=== PATIENT | female | born 1960 | race African-American/Black ===

== ENCOUNTER 2019-11-14 00:28 | Inpatient (IN) | payer MEDICARE ==
[~2019-11-14] VITALS: Ht 170.2 cm; Wt 90.5 kg
[2019-11-14] VITALS (32 sets, daily range): BP systolic 107–180; BP diastolic 73–111; BMI 33.0; BMI 32.9
--- NOTE | ~2019-11-14 | EC ---
PATIENT:HEMALATHA PARK DATE OF SERVICE: 11/14/19 SEX: F MEDICAL RECORD: [id number] DATE OF : 58 LOCATION[facility] AGE OF PATIENT: 59 ADMISSION DATE: 11/14/19 REFERRING PHYSICIAN: INTERPRETING PHYSICIAN: KARINE CARLOS MD ECHOCARDIOGRAM REPORT ECHO CHARGES 4 ECHO COMPLETE Date: 11/14/19 CLINICAL DIAGNOSIS: CHF/ELEVATED PRO-BNP/ BRADYCARDIA ECHOCARDIOGRAPHIC MEASUREMENTS (adult normal given) AC root (d.<3.7cm) 3.2 cm LV Septum d (<1.2 cm> 1.3 cm Valve Excursion 1.6 cm LV Septum (systole) 1.5 cm Left Atria (s.<4.0cm> 2.8 cm LVPW d(<1.2cm) 1.1 cm RV (d.<2.3cm) 2.7 cm LVPW (sytole) 1.6 cm LV diastole(<5.6CM) 4.4 cm MV E-F(>70mm/sec) cm LV systole 3.4 cm LVOT Diameter 1.7 cm MV exc.(>10mm) cm Est.ejection fraction (50-75%) % DOPPLER: LVIT cm/sec A 89.0 cm/sec E 56.0 cm/sec LA cm/sec RVSP mmHg LVOT 74.0 cm/sec AOP1/2T m/s Asc. Ao 135 cm/sec RVOT 65.0 cm/sec RA cm/sec PA 73.0 cm/sec AV Gradient Peak 7.3 mmHg AV Mean 3.8 mmHg AV Area 1.7 cm MV Gradient Peak 3.8 mmHg MV Mean 1.5 mmHg MV Area cm COMMENTS: Insurance Loss Assessor: Marvin VILLANUEVAOE Merchandise Appraiser: 1 Dr. Carlos TAPE# PACS Pericardial Effusion N DATE OF SERVICE: 11/14/2019 FINDINGS: 1. Left ventricular chamber size is mildly dilated. Left ventricular function is markedly reduced, overall ejection fraction 25%. 2. Left atrium, right atrium, right ventricle chamber size is within normal limits. 3. Valvular structures have normal structure and motion. 4. Doppler interrogation reveals no significant valvular insufficiency or stenosis. ECHOCARDIOGRAM REPORT [id number] HEMALATHA PARK 5. No evidence of pericardial effusion or left ventricular thrombus. TRANSINT:[id number] Voice Confirmation ID: [id number] DOCUMENT ID: [id number] KARINE CARLOS MD CC: [id number] DICTATION DATE: 11/15/19 1311 SPLICER OPERATOR: 11/15/19 1723 ADM IN [place] [id number] [place] [id number]
[2019-11-14] MEDS ORDERED: PRILOSEC PO (00:34)
[2019-11-14] MEDS ORDERED: ZOLOFT50 MG PO (00:35)
[2019-11-14] MEDS ORDERED: BUSPAR10 MG PO (00:36)
[2019-11-14] MEDS ORDERED: REGULAR INSULIN (00:36)
[2019-11-14] MEDS ORDERED: NEURONTIN 400400 MG PO (00:36)
[2019-11-14] MEDS ORDERED: BISACODYL5 MG PO (00:37)
[2019-11-14] MEDS ORDERED: GLUCAGON IM (00:37)
--- NOTE | 2019-11-14 04:11 | NUR ---
AWAITING RESPIRATORY AND RADIOLOGY FOR PATIENT TO GO AROUND FOR CT.
--- NOTE | 2019-11-14 04:49 | NUR ---
PATIENT IS HAVING PAUSES IN CARDIAC RHYTHM BRADYING DOWN TO 40'S BRIEFLY WILL CONTINUE TO WATCH PATIENT BEFORE TAKING AROUND TO CT.
[2019-11-14 05:44] LABS: BASOPHILS 0.2 % (0-2); EOSINOPHILS 0 % (0-7); HEMATOCRIT 56.4 % (36.0-48.0); HEMOGLOBIN 17.3 g/dL (12-16); IMMATURE GRANULOCYTES 0.5 % (0-5); LYMPHOCYTES 9.8 % (15-50); MCH 28.5 pg (26.0-34.0); MCHC 30.7 g/dL (31.0-37.0); MCV 93.1 fL (80.0-100.0); MEAN PLATELET VOLUME 10.9 fL (7.4-10.4); MONOCYTES 4.3 % (2-11); NEUTROPHILS 85.2 % (40-80); PLATELET COUNT 146 10x3/uL (130-400); RBC 6.06 10x6/uL (4.00-5.40); RDW 14.6 % (11.5-14.5); WBC 10.4 10x3/uL (4.8-10.8)
--- NOTE | 2019-11-14 07:00 | NUR ---
REPORT RECIEVED FROM THE OFF GOING RN. SEE ASSESSMENT IN THE PTS FLOW SHEET. PT SEDATED AND ON THE VENTILATOR. NGT NOTED TO LEFT NARE TO LIS. NO RESIDUAL NOTED BUT ASCULTATED AND IT IS PATENT. FC NOTED WITH DARK YELLOW URINE NOTED. VSS AT THIS TIME. CALL LIGHT IN REACH. WILL CONT POC.
[2019-11-14 07:39] LABS: CKMB 15.5 U/L (0.0-3.6); CREATINE KINASE 251 UL (21-215); MAGNESIUM - SERUM 1.9 mg/dL (1.8-2.4); PHOSPHOROUS 3.5 mg/dL (2.5-4.9)
[2019-11-14 07:41] LABS: TROPONIN-I 4.758 ng/mL (0.000-0.060)
[2019-11-14 07:42] LABS: ALBUMIN 2.6 g/dL (3.4-5.0); ANION GAP 12.2 mmol/L (8-16); BILIRUBIN - TOTAL 0.37 mg/dL (0.2-1.3); CALCIUM 8.7 mg/dL (8.5-10.1); CARBON DIOXIDE 30.3 mmol/L (21.0-32.0); CREATININE - SERUM 1.1 mg/dL (0.6-1.3); POTASSIUM - SERUM 4.5 mmol/L (3.5-5.1); PROTEIN - SERUM 7.1 g/dL (6.4-8.2)
--- NOTE | 2019-11-14 08:07 | NUR ---
SPOKE WITH DR CLEMENTE ABOUT ELEVATED CARDIAC EMZYMES. EXPLAINED THAT THE PT DID NOT GET A HEAD CT BECAUSE OF THE PTS BRADYCARDIA. CANCLE HEAD CT. CONSULT CARDIOLOGY. CYCLE CARDIAC EMZYMES.
--- NOTE | 2019-11-14 08:12 | NUR ---
DR CARTER PAGED ABOUT CONSULT.
--- NOTE | 2019-11-14 08:23 | NUR ---
DR CARTER CALLED BACK AND MADE AWARE OF CONSULT. HE STATED MICHAEL ZAVALA WILL SEE THE PT.
--- NOTE | 2019-11-14 09:46 | NUR ---
MICHAEL WOLF AT THE PTS BEDSIDE.
--- NOTE | 2019-11-14 11:00 | NUR ---
REASSESSMENT COMPLETED. SEE FLOW SHEET. WILL CONT POC.
--- NOTE | 2019-11-14 13:00 | NUR ---
PT REPOSITIONED. VSS. WILL CONT POC.
[2019-11-14 13:35] LABS: CKMB 11.2 U/L (0.0-3.6); CREATINE KINASE 216 UL (21-215)
[2019-11-14 13:38] LABS: TROPONIN-I 4.695 ng/mL (0.000-0.060)
--- NOTE | 2019-11-14 14:00 | NUR ---
PT RECIEVED A FULL CHD BATH AND LINEN CHANGE. PT TOLERATED WELL.
--- NOTE | 2019-11-14 15:00 | NUR ---
REASSESSMENET COMPLETED SEE FLOW SHEET. WILL CONT POC.
--- NOTE | 2019-11-14 16:00 | MORECARE ---
CASE MANAGEMENT DISCHARGE SUMMARY PATIENT: HEMALATHA PARK UNIT: [id number] ADM DATE: 11/14/19 AGE: 59 : 58 SEX: F ROOM/BED: D.2312 AUTHOR: HARISH BURROUGHS PHYSICIAN: REFERRING PHYSICIAN: JOSÉ MIGUEL CLEMENTE MD DATE OF SERVICE: 11/14/19 Discharge Plan Patient Name: HEMALATHA PARK [facility] [facility] 1960 Planned Disposition: Nursing Facility [facility] Cert Anticipated Discharge Date: Discharge Date: Expected LOS: Initial Reviewer: [email or web address] Initial Review Date: 11/14/2019 Generated: 11/14/19 4:59 pm DCPIA - Discharge Planning Initial Assessment Updated by [email or web address]: Minerva Linares on 11/14/19 3:54 pm * Is the patient Alert and Oriented? Yes * How many steps to enter\exit or inside your home? * PCP FARIHA MENDEZ [phone] * [facility]acy [facility] * Preadmission Environment [facility] Laboratory Technician [facility] * Facility Name [facility] * List name and contact numbers for known caregivers / representatives who currently or will assist patient after discharge: KORY MARION [facility] [phone] * Verbal permission to speak to the caregivers and representatives has been obtained from the patient. N/A * Community resources currently utilized None * Additional services required to return to the preadmission environment? No * Can the patient safely return to the preadmission environment? Yes * Has this patient been hospitalized within the prior 30 days at any hospital? No Patient Name: HEMALATHA PARK Page [id number] at 1600 All edits/amendments must be made on the electronic document DICTATION DATE: 11/14/191558 WOMEN NURSE: DILEEP 11/14/191558 RPT#: [id number] DC DATE: STATUS: ADM IN [facility] [address] [place] [address] END OF REPORT
--- NOTE | 2019-11-14 16:11 | MORECARE ---
CASE MANAGEMENT DISCHARGE SUMMARY PATIENT: HEMALATHA PARK UNIT: [id number] ADM DATE: 11/14/19 AGE: 59 : 58 SEX: F ROOM/BED: D.2312 AUTHOR: MANJEET,DOC PHYSICIAN: REFERRING PHYSICIAN: JOSÉ MIGUEL CLEMENTE MD DATE OF SERVICE: 11/14/19 Discharge Plan Patient Name: HEMALATHA PARK Facility: [facility]:[place] : 1960 Planned Disposition: Nursing Facility [facility] Cert Anticipated Discharge Date: Discharge Date: Expected LOS: Initial Reviewer: [email or web address] Initial Review Date: 11/14/2019 Generated: 11/14/19 5:10 pm Comments DCP- Discharge Planning Updated by [email or web address]: Minerva Linares on 11/14/19 3:[address] Patient Name: HEMALATHA PARK Admission Status: ER Accout number: [id number] Admission Date: 11-14-2019 : 1960 Admission Diagnosis: Attending: JSOÉ MIGUEL CLEMENTE Current LOS: 1 Anticipated DC Date: Planned Disposition: Nursing Facility [facility] Cert Primary Insurance: MEDICARE A & B Discharge Planning Comments: CM spoke with [facility]. [phone]. Patient has been at this facility since 10/31/19. She had transferred from a senior living in [place]. Patient is in a Medicaid bed in the facility. [facility] plans to accept patient back once she is discharged. CM couldn't speak with patient d/t her being on vent sedated. No family available at this time. CM will continue to follow and assist as needed with discharge planning / needs. Fork Assembler: Minerva Linares DCPIA - Discharge Planning Initial Assessment Updated by [email or web address]: Minerva Linares on 11/14/19 3:54 pm * Is the patient Alert and Oriented? Yes * How many steps to enter\exit or inside your home? * PCP FARIHA MENDEZ [phone] * Pharmacy [facility] [place] * Preadmission Environment Fpc [facility] * Facility Name [facility] * List name and contact numbers for known caregivers / representatives who currently or will assist patient after discharge: KORY SANCHEZ- [phone] * Verbal permission to speak to the caregivers and representatives has been obtained from the patient. N/A * Community resources currently utilized None * Additional services required to return to the preadmission environment? No * Can the patient safely return to the preadmission environment? Yes * Has this patient been hospitalized within the prior 30 days at any hospital? No Last DP export: 11/14/19 3:00 Patient Name: HEMALATHA PARK Page [phone] at 1611 All edits/amendments must be made on the electronic document DICTATION DATE: 11/14/191609 STOCK RANCH SUPERVISOR: DILEEP 11/14/191609 RPT#: [id number] DC DATE: STATUS: ADM IN [facility] [address] [place] [address] END OF REPORT
--- NOTE | 2019-11-14 18:30 | NUR ---
SPOKE WITH GITA WOODWARD. SHE STATED THAT SHE WILL BE ABLE TO HELP WITH THE VENT AND HEAD CT AROUND 9PM. CT CALLED AND OFF GOING RN NOTIFIED.
[2019-11-14 18:54] LABS: INR 1.19 (0.85-1.17); PROTIME 14.5 SECONDS (11.6-15.0)
[2019-11-14 19:24] LABS: CKMB 7.4 U/L (0.0-3.6); CREATINE KINASE 188 UL (21-215); PRO BNP 2959 pg/mL (0-125)
[2019-11-14 19:27] LABS: TROPONIN-I 4.461 ng/mL (0.000-0.060)
--- NOTE | 2019-11-14 19:30 | NUR ---
PT SEDATED, ETT PATENT TO VENT, NGT TO LIWS, LEFT AND RIGHT AC PIV'S INTACT WITH FLUIDS INFUSING, DOWNING PATENT TO BSD, BILAT SWR IN USE, SCD'S TO BILAT LOWER LEGS, VITALS STABLE, WILL CONT TO MONITOR
--- NOTE | 2019-11-14 21:15 | NUR ---
NGT SLUGGISH, NO OUTPUT NOTED, D/C'D NGT, PLACED OGT TO LIWS, PT TOLERATED WELL, IMMEDIATE GREEN OUTPUT NOTED
--- NOTE | 2019-11-14 22:50 | NUR ---
PT TAKEN TO CT VIA BED WITH RT PRESENT, ETT PATENT TO AMBU BAG, PT REMAINS SEDATED
[2019-11-15] VITALS (26 sets, daily range): BP systolic 87–161; BP diastolic 59–94
--- NOTE | 2019-11-15 01:00 | NUR ---
PT REMAINS SEDATED, OGT TO ESSIE,ETT PATENT TO VENT, NO DISTRESS NOTED
--- NOTE | 2019-11-15 03:00 | NUR ---
PT BATHED PER STAFF, SUCTIONED, COPIUOS AMOUNTS CLEAR THICK DRAINAGE COMING FROM MOUTH AND NOSE, VITALS STABLE
[2019-11-15 04:00] LABS: BASOPHILS 0.1 % (0-2); EOSINOPHILS 0 % (0-7); HEMOGLOBIN 15.1 g/dL (12-16); IMMATURE GRANULOCYTES 0.3 % (0-5); LYMPHOCYTES 6.6 % (15-50); MCHC 32.1 g/dL (31.0-37.0); MEAN PLATELET VOLUME 10.6 fL (7.4-10.4); MONOCYTES 4.3 % (2-11); NEUTROPHILS 88.7 % (40-80); PLATELET COUNT 159 10x3/uL (130-400); RBC 5.21 10x6/uL (4.00-5.40); RDW 14.3 % (11.5-14.5)
[2019-11-15 04:05] LABS: MCV 90.2 fL (80.0-100.0); WBC 14.5 10x3/uL (4.8-10.8)
[2019-11-15 04:26] LABS: ALBUMIN 2.2 g/dL (3.4-5.0); ANION GAP 8.6 mmol/L (8-16); BILIRUBIN - TOTAL 0.24 mg/dL (0.2-1.3); CALCIUM 8.7 mg/dL (8.5-10.1); CARBON DIOXIDE 32.4 mmol/L (21.0-32.0); CREATININE - SERUM 0.9 mg/dL (0.6-1.3); MAGNESIUM - SERUM 1.9 mg/dL (1.8-2.4); PHOSPHOROUS 3.1 mg/dL (2.5-4.9); VALPROIC ACID (DEPAKOTE) 24.9 ug/mL (50.0-100.0)
[2019-11-15 04:38] LABS: INR 1.07 (0.85-1.17); PROTIME 13.4 SECONDS (11.6-15.0)
--- NOTE | 2019-11-15 05:15 | NUR ---
NO CHANGES NOTED IN PT CONDITION, REMAINS SEDATED, VITALS STABLE
--- NOTE | 2019-11-15 07:15 | NUR ---
REPORT RECEIVED. ASSESSMENT COMPLETE PRE FLOW SHEET. VSS REFER FOR FINDINGS. IWLL CONTINUE TO MONITOR
--- NOTE | 2019-11-15 08:25 | NUR ---
Nutrition follow-up: Pt intubated, sedated OGT -> LIWS with large amount of drainage Labs reviewed Wt: 218# Recommend starting Pulmocare @ 25 ml/hr with gradual increase to goal rate of 50 ml/hr; 100 ml H2O flush q [address] following.
--- NOTE | 2019-11-15 09:00 | NUR ---
ORAL NEDOTRACH CARE ADM. REPOSITIONED FOR COMFORT WILL CONTNIUE TO MONITOR
--- NOTE | 2019-11-15 11:15 | NUR ---
REASSESSMENT COMLPETE PER FLOW SHEET. VSS. NO NEW CHANGES WILL CONTINUE TO MONITOR
--- NOTE | 2019-11-15 13:15 | NUR ---
DR SANDS AT BEDSIDE GIVEN UDPATE NEW ORDERS RECEIVED
--- NOTE | 2019-11-15 15:15 | NUR ---
REASSESSMENT COMPLETE PER FLOW SHEET. VSS. NO NEW CHANGES IWLL CONTINUE TO MONITOR
--- NOTE | 2019-11-15 19:30 | NUR ---
PT SEDATED, ETT PATENT TO VENT, BILAT CRACKLES NOTED, OGT IN PLACE WITH PULMOCARE @ 20 CC/HR, LEFT AND RIGHT AC PIV'S INTACT WITH NS @ KVO AND FENTANYL MANAGER OF MAINTENANCE, GENERALIZED EDEMA NOTED, DOWNING PATENT TO BSD WITH DARK JAVED URINE, SCD'S TO BILAT LOWER LEGS, VITALS STABLE
--- NOTE | 2019-11-15 21:15 | NUR ---
PT RESTING QUIETLY, BRADYCARDIC, NO DISTRESS NOTED, WILL CONT TO MONITOR
--- NOTE | 2019-11-15 23:25 | NUR ---
PT REMAINS BRADRCARDIC, HR INCREASES WITH STIMULATION, FENTANYL GTT DECREASED TO 200MCG/HR
[2019-11-16] VITALS (25 sets, daily range): BP systolic 85–156; BP diastolic 45–109; Ht 170.2 cm; Wt 90.5 kg
--- NOTE | 2019-11-16 00:44 | NUR ---
PT REMAINS BRADYCARDIC, AROUSES BRIEFLY TO STIMULI, FENTANYL GTT DECREASED TO 150 MCG/HR, WILL CONT TO MONITOR
--- NOTE | 2019-11-16 03:00 | NUR ---
PT TRING TO GET UP, IV FOUND PULLED OUT, RESITED TO RIGHT FOREARM WITH 20G IV CATH, PLACED 20G IV CATH TO LEFT FOREARM AND SL, PT FOLLOWS COMMANDS, VITALS STABLE
[2019-11-16 04:29] LABS: BASOPHILS 0.1 % (0-2); EOSINOPHILS 0 % (0-7); HEMATOCRIT 48.8 % (36.0-48.0); HEMOGLOBIN 15.6 g/dL (12-16); IMMATURE GRANULOCYTES 0.5 % (0-5); LYMPHOCYTES 5.3 % (15-50); MCH 29.2 pg (26.0-34.0); MCV 91.4 fL (80.0-100.0); MEAN PLATELET VOLUME 10.3 fL (7.4-10.4); MONOCYTES 3.6 % (2-11); NEUTROPHILS 90.5 % (40-80); PLATELET COUNT 168 10x3/uL (130-400); RBC 5.34 10x6/uL (4.00-5.40); RDW 14.3 % (11.5-14.5); WBC 17.8 10x3/uL (4.8-10.8)
[2019-11-16 04:42] LABS: ALBUMIN 2.5 g/dL (3.4-5.0); BILIRUBIN - TOTAL 0.41 mg/dL (0.2-1.3); CALCIUM 8.7 mg/dL (8.5-10.1); CARBON DIOXIDE 32.5 mmol/L (21.0-32.0); MAGNESIUM - SERUM 2.2 mg/dL (1.8-2.4); PROTEIN - SERUM 6.6 g/dL (6.4-8.2)
[2019-11-16 04:43] LABS: ANION GAP 9.5 mmol/L (8-16); PHOSPHOROUS 4.8 mg/dL (2.5-4.9)
--- NOTE | 2019-11-16 05:34 | NUR ---
PT SEDATED, OPENS EYES TO STIMULI, FOLLOWS COMMANDS POORLY, VITALS STABLE
--- NOTE | 2019-11-16 07:00 | NUR ---
OPENS EYES TO NAMES, SQUEEZES RIGHT HAND ON REQUEST. RETURNS TO SLEEP WHEN NOT SPOKEN TOO. SKIN WARM AND DRY. IV RIGHT FOREARM INFUSING WITH NS AND KVO. LEFT FOREARM IV SALINE LOCK NO REDNESS OR SWELLING. ETT SECURE TO VENT BILATERAL LUNG SOUNDS EQUAL SKIN WARM AND DRY..CATH PATENT DRAINING JAVED URINE. MONITOR SB WITH OCC PVC'S. HEAD OF BED ELEVATED 30 DEGREES. SUCTIONED SMALL AMOUNT PER ETT. ORAL CARE DONE
--- NOTE | 2019-11-16 09:00 | NUR ---
HIBCLDENS BATH GIVEN WITH COMPLETE LINEN CHANGE PATIENT TOLERATED WELL. VERSED GIVEN PRIOR TO BATH. NO SKIN BREAKDOWN NOTED.
--- NOTE | 2019-11-16 11:00 | NUR ---
DR. PRINCE HERE. SPUTUM CULTURE RESULTS GIVEN TO HIM.
--- NOTE | 2019-11-16 13:00 | NUR ---
REPOSITIONED PULLED UP IN BED. TOLERATED WELL OPENS EYES TO NAME. NO DISTRESS. RESTING COMFORTABLY
--- NOTE | 2019-11-16 17:00 | NUR ---
RESTING COMFORTABLY ON VENT. NO DISTRESS. OPENS EYES WHEN SPOKEN TOO. GOOD RESPONSE TO BUMEX.
--- NOTE | 2019-11-16 17:49 | NUR ---
called to check on patient. name kamari roberts [phone]. states he is not sure who is over patient right now. states tish collado is her sister in law. discuss password, need to talk with tish to establish.
--- NOTE | 2019-11-16 19:00 | NUR ---
REPORT RECEIVED INITIAL ASSESSMENT COMPLETE. OPENS EYES TO VERBAL STIMULI FOLLOWS COMMANDS CM READING SB IN 40-50'S. TUBE FEEDING VIA OGT TOLERATING WELL. ORALLY INTUBATED SEE RESP NOTES. CPOC WILL CONTINUE TO MONITOR
[2019-11-17] VITALS (24 sets, daily range): BP systolic 115–162; BP diastolic 71–95
--- NOTE | 2019-11-17 00:09 | NUR ---
PT ANXIOUS BLOOD PRESSURE UP FIDGETING MEDICATED WITH VERSED PER PRN EMAR ORDER
--- NOTE | 2019-11-17 02:31 | NUR ---
PT BITING ETT RESTLESS MEDICATED WITH VERSED PRN MED SEE EMAR
--- NOTE | 2019-11-17 03:00 | NUR ---
REASSESSMENT COMPLETE NO CHANGES
[2019-11-17 03:44] LABS: BASOPHILS 0.1 % (0-2); EOSINOPHILS 0 % (0-7); HEMATOCRIT 48.8 % (36.0-48.0); HEMOGLOBIN 15.8 g/dL (12-16); IMMATURE GRANULOCYTES 0.7 % (0-5); LYMPHOCYTES 5.9 % (15-50); MCHC 32.4 g/dL (31.0-37.0); MCV 89.7 fL (80.0-100.0); MEAN PLATELET VOLUME 10.7 fL (7.4-10.4); MONOCYTES 4.2 % (2-11); NEUTROPHILS 89.1 % (40-80); PLATELET COUNT 166 10x3/uL (130-400); RBC 5.44 10x6/uL (4.00-5.40); RDW 13.9 % (11.5-14.5); WBC 16.7 10x3/uL (4.8-10.8)
[2019-11-17 04:09] LABS: ALBUMIN 2.3 g/dL (3.4-5.0); BILIRUBIN - TOTAL 0.28 mg/dL (0.2-1.3); CALCIUM 8.7 mg/dL (8.5-10.1); CARBON DIOXIDE 34.3 mmol/L (21.0-32.0); MAGNESIUM - SERUM 2.2 mg/dL (1.8-2.4); PROTEIN - SERUM 6.3 g/dL (6.4-8.2)
[2019-11-17 04:12] LABS: ANION GAP 7.9 mmol/L (8-16); PHOSPHOROUS 2.9 mg/dL (2.5-4.9); POTASSIUM - SERUM 4.2 mmol/L (3.5-5.1)
--- NOTE | 2019-11-17 07:00 | NUR ---
AWAKE COUGHING GAGGING AGAINST ETT TUBE. VERSE AND FENTANYL INCREASED TO 150 MCG. SUCTIONED ORALLY, NASAL DRAINAGE, SUCTIONED. REPOSITIONED. BILATERAL LUNG SOUNDS EQUAL. OG TUBE INFSING WITH PULMOCARE AT 45 ML HOUR. DOWNING CATH PATENT DRAINING CLEAR JAVED. MONITOR SB. OCC PVC AND PAC'S NOTED. SCD ON LOWER LEGS. HEAD OF BED ELEVATED AT 30 DEGREES. ETT SECURE TO VENT.
--- NOTE | 2019-11-17 09:00 | NUR ---
10CC RESIDULA FROM OG. PLACEMENT CHECKED WITH AIR BOLUS IN TUBE, AUDIBLE IN ABD. PATIENT OPENS EYES AND FOLLOWS NURSE IN ROOM. DOES NOT OBEY COMMANDS.
--- NOTE | 2019-11-17 10:00 | NUR ---
COMPLETE HIBCLENS BATH GIVEN WITH LINEN CHANGE. NO SKIN BREAKDOWN NOTED. HEEL ELEVATED WITH PILLOW. PATIENT TOLERATED WELL. PATIENT ASSIST WITH TURNING SELF FROM SIDE. PATIENT LIFTED HER BOTTOM TO REMOVE GOWN. GOOD UPPER BODY STRENGTH.
--- NOTE | 2019-11-17 13:00 | NUR ---
DR. BERMUDEZ HERE. VENT CHANGES TO SIMV 12 TV 550 PS 10 PEEP 8. PATIENT RESTING COMFORTABLY ON FENTANYL 150 MCG. PATTERSON SECRETIONS FROM ORAL CAVITY. MINIMAL ETT SECRETIONS.
--- NOTE | 2019-11-17 14:32 | NUR ---
NO RESP DISTRESS. PATIENT TOLERATING SIMV
--- NOTE | 2019-11-17 16:30 | NUR ---
NO DISTRESS RESTING COMFORTABLY ON SIMV. RESP DEEP AND REGULAR
--- NOTE | 2019-11-17 17:30 | NUR ---
LARGE BROWN SOFT STOOL. IN BED. REPOSITIONED PERICARE DONE. BUTT PASTE APPLIED TO EXCORATION. MOANING AT TIMES, BUT LESS AFTER PAIN MEDS
--- NOTE | 2019-11-17 18:30 | NUR ---
NO CHANGE RESTING COMFORTABLY. TUBE FEEDING 45 ML HOUR. 10CC RESIDULA. GOOD URINE OUTPUT
--- NOTE | 2019-11-17 18:35 | NUR ---
LARGE DARK BROWN STOOL. PERICARE DONE. MEDIPLEX APPLIED. REPOSITIONED ON RIGHT SIDE. MOANING AGAIN.
[2019-11-18] VITALS (24 sets, daily range): BP systolic 105–144; BP diastolic 67–95
--- NOTE | 2019-11-18 01:30 | NUR ---
REPOSITIONED FOR COMFORT, ORAL CARE PROVIDED
--- NOTE | 2019-11-18 03:26 | NUR ---
REASSESSMENT COMPLETE, NO CHANGES NOTED, PT RESTING AT THIS TIME, VSS, WILL CON'T TO MONITOR
[2019-11-18 05:41] LABS: ALBUMIN 2.3 g/dL (3.4-5.0); ANION GAP 7.4 mmol/L (8-16); BASOPHILS 0.1 % (0-2); BILIRUBIN - TOTAL 0.41 mg/dL (0.2-1.3); CALCIUM 8.4 mg/dL (8.5-10.1); CARBON DIOXIDE 35.9 mmol/L (21.0-32.0); CREATININE - SERUM 0.9 mg/dL (0.6-1.3); EOSINOPHILS 0 % (0-7); HEMATOCRIT 48.6 % (36.0-48.0); HEMOGLOBIN 15.8 g/dL (12-16); IMMATURE GRANULOCYTES 0.5 % (0-5); LYMPHOCYTES 5.2 % (15-50); MAGNESIUM - SERUM 2.2 mg/dL (1.8-2.4); MCH 28.8 pg (26.0-34.0); MCHC 32.5 g/dL (31.0-37.0); MCV 88.7 fL (80.0-100.0); MEAN PLATELET VOLUME 11.1 fL (7.4-10.4); MONOCYTES 5.6 % (2-11); NEUTROPHILS 88.6 % (40-80); PHOSPHOROUS 3.2 mg/dL (2.5-4.9); PLATELET COUNT 161 10x3/uL (130-400); POTASSIUM - SERUM 4.3 mmol/L (3.5-5.1); RBC 5.48 10x6/uL (4.00-5.40); RDW 14.1 % (11.5-14.5)
[2019-11-18 05:46] LABS: WBC 12.4 10x3/uL (4.8-10.8)
--- NOTE | 2019-11-18 07:30 | NUR ---
PATIENT REPORT RECIEVED. NO ACUTE DISTRESS. RESTING COMFROTABLY. VSS. SEE ASSESSMENT. SEE ADL'S. WILL CONTINUE TO MONITOR
--- NOTE | 2019-11-18 08:16 | NUR ---
cpap trials started at 815
--- NOTE | 2019-11-18 09:02 | NUR ---
Nutrition follow-up: Pt remains intubated, sedated CXR unchanged 11/17 CPAP trials started at 0815 today Pulmocare @ goal rate of 45 ml/hr Wt: 223# RDN following.
--- NOTE | 2019-11-18 09:27 | NUR ---
PATIENT FOLLLOWS COMMANDS. WEAK. CPAP TRIALS. AWAKENS TO SPEECH. SUCTIONED. PATIENT PRODUCED SEVERAL SECRETIONS. PATIENT HAD REDNESS IN BOTH EYES. REORIENTED.
--- NOTE | 2019-11-18 11:30 | NUR ---
patient repositioned. new linens provided. will continue to monitor
--- NOTE | 2019-11-18 13:30 | NUR ---
patient off cpap trials
--- NOTE | 2019-11-18 14:50 | NUR ---
patient vomited tube feeding. told dr sandoval. said to connect to suction.
--- NOTE | 2019-11-18 17:45 | NUR ---
patient respositioned. no acute dsitres. suctioned. bathed today. will continue to monitor.
--- NOTE | 2019-11-18 19:15 | NUR ---
REPORT RECEIVED. PT SEDATED ON VENT, FOLLOWS COMMANDS. DOWNING IN PLACE, OGT TO LIS. RT WRIST PIV INFUSING, SEE IV FLOWSHEET. ASSESSMENT COMPLETE, SEE FLOWSHEET. NO ACUTE DISTRESS NOTED. SOFT WRIST RESTRAINTS TO BOTH WRISTS. WILL CONTINUE TO MONITOR.
--- NOTE | 2019-11-18 21:00 | NUR ---
PT SEDATED, FOLLOWS COMMANDS. PT PRODUCING COPIOUS AMOUNTS OF YELLOW SECRETIONS, SUCTIONED NEEDED. WILL CONTINUE TO MONITOR.
--- NOTE | 2019-11-18 23:00 | NUR ---
PT SEDATED, FOLLOWS COMMANDS. NO ACUTE DISTRESS NOTED AT THIS TIME. WILL CONTINUE TO MONITOR.
[2019-11-19] VITALS (24 sets, daily range): BP systolic 97–141; BP diastolic 64–100
--- NOTE | 2019-11-19 01:00 | NUR ---
PT SPITTING UP YELLOW-TINGED FLUID, REPLACED OGT WITH 18FR OGT, MARKED AND SECURED. WILL CONTINUE TO MONITOR.
--- NOTE | 2019-11-19 03:00 | NUR ---
PT SEDATED, FOLLOWS COMMANDS. CHG BATH GIVEN, COMPELTE LINEN CHANGE. WILL CONTINUE TO MONITOR.
--- NOTE | 2019-11-19 05:00 | NUR ---
PT SEDATED, FOLLOWS COMMANDS. NO ACUTE DISTRESS NOTED. WILL CONTINUE TO MONITOR.
[2019-11-19 05:12] LABS: BASOPHILS 0.1 % (0-2); EOSINOPHILS 0.1 % (0-7); HEMATOCRIT 51.2 % (36.0-48.0); HEMOGLOBIN 16.6 g/dL (12-16); IMMATURE GRANULOCYTES 0.3 % (0-5); LYMPHOCYTES 12.7 % (15-50); MCH 28.7 pg (26.0-34.0); MCHC 32.4 g/dL (31.0-37.0); MCV 88.4 fL (80.0-100.0); MEAN PLATELET VOLUME 11.8 fL (7.4-10.4); MONOCYTES 8.2 % (2-11); NEUTROPHILS 78.6 % (40-80); PLATELET COUNT 184 10x3/uL (130-400); RBC 5.79 10x6/uL (4.00-5.40); RDW 14.3 % (11.5-14.5); WBC 12.9 10x3/uL (4.8-10.8)
[2019-11-19 05:42] LABS: ALBUMIN 2.4 g/dL (3.4-5.0); ANION GAP 8.9 mmol/L (8-16); BILIRUBIN - TOTAL 0.79 mg/dL (0.2-1.3); CALCIUM 8.9 mg/dL (8.5-10.1); CARBON DIOXIDE 36.8 mmol/L (21.0-32.0); MAGNESIUM - SERUM 2.1 mg/dL (1.8-2.4); PHOSPHOROUS 3.9 mg/dL (2.5-4.9); POTASSIUM - SERUM 3.7 mmol/L (3.5-5.1); PROTEIN - SERUM 6.3 g/dL (6.4-8.2)
--- NOTE | 2019-11-19 07:30 | NUR ---
REPORT RECEIVED. PT ON DROPLET PRECAUTIONS FOR ESBL IN URINE AND SPUTUM. PT HAS IVS TO LEFT FOREARM AND RIGHT WRIST WITH NS AT KVO. PT IN SOFT WRIST RESTRAINTS. HAS DOWNING. ON VENT. HAS OGT TO LIS. PT SEDATED AND CALM. VSS. WILL CONTINUE TO MONITOR.
--- NOTE | 2019-11-19 09:15 | NUR ---
AM MEDICATIONS GIVEN. OGT TURNED OFF SUCTION FOR NOW FOR MEDS TO ABSORB. VSS. WILL CONTINUE TO MONITOR.
--- NOTE | 2019-11-19 09:45 | NUR ---
OGT TURNED BACK TO LIS.
--- NOTE | 2019-11-19 11:21 | NUR ---
DR GISELLE HARDY ON PT.
--- NOTE | 2019-11-19 13:15 | NUR ---
PT RESTING QUIETLY. FOLLOWS SIMPLE COMMANDS. WILL CONTINUE TO MONITOR.
--- NOTE | 2019-11-19 15:27 | NUR ---
REPOSITIONED AND SUCTIONED. VSS. REASSESSMENT COMPLETE. WILL CONTINUE TO MONITOR.
--- NOTE | 2019-11-19 17:45 | NUR ---
PT SUCTIONED. CLEANED FACE. VSS. WILL CONTINUE TO MONITOR.
--- NOTE | 2019-11-19 21:00 | NUR ---
PT CONFUSED/DISORIENTED. PT STILL PRODUCING COPIOUS AMOUNTS OF THICK SPUTUM. WILL CONTINUE TO MONITOR.
--- NOTE | 2019-11-19 23:00 | NUR ---
PT CONFUSED, SECRETIONS DECREASED AT THIS TIME. WILL CONTINUE TO MONITOR.
[2019-11-20] VITALS (24 sets, daily range): BP systolic 80–160; BP diastolic 68–112
--- NOTE | 2019-11-20 01:00 | NUR ---
PT CONFUSED, ATTEMPTED TO REORIENT. NO ACUTE DISTRESS AT THIS TIME.
--- NOTE | 2019-11-20 03:00 | NUR ---
PT RESTING IN BED, NO ACUTE DISTRESS NOTED. WILL CONTINUE TO MONITOR.
[2019-11-20 03:52] LABS: BASOPHILS 0 % (0-2); EOSINOPHILS 0 % (0-7); HEMATOCRIT 50.3 % (36.0-48.0); HEMOGLOBIN 16.6 g/dL (12-16); IMMATURE GRANULOCYTES 0.5 % (0-5); LYMPHOCYTES 14.6 % (15-50); MCH 29.1 pg (26.0-34.0); MCV 88.1 fL (80.0-100.0); MEAN PLATELET VOLUME 11.3 fL (7.4-10.4); MONOCYTES 6.7 % (2-11); NEUTROPHILS 78.2 % (40-80); PLATELET COUNT 191 10x3/uL (130-400); RBC 5.71 10x6/uL (4.00-5.40); RDW 13.9 % (11.5-14.5); WBC 14.1 10x3/uL (4.8-10.8)
[2019-11-20 04:16] LABS: ALBUMIN 2.3 g/dL (3.4-5.0); BILIRUBIN - TOTAL 1.39 mg/dL (0.2-1.3); CALCIUM 8.8 mg/dL (8.5-10.1); CARBON DIOXIDE 37.2 mmol/L (21.0-32.0); CREATININE - SERUM 1.1 mg/dL (0.6-1.3); PROTEIN - SERUM 6.5 g/dL (6.4-8.2)
[2019-11-20 04:19] LABS: ANION GAP 10.1 mmol/L (8-16); POTASSIUM - SERUM 4.3 mmol/L (3.5-5.1)
--- NOTE | 2019-11-20 05:00 | NUR ---
PT RESTING IN BED, DISORIENTED TO TIME, PLACE, SITUATION. FOLLOWS COMMANDS. NO ACUTE DISTRESS NOTED. WILL CONTINUE TO MONITOR.
--- NOTE | 2019-11-20 07:15 | NUR ---
REPORT RECEIVED. PT ON VENT AND OGT TO LIS. VENT SETTINGS PER RT. DOWNING IN PLACE. IN RESTRAINTS. NO SEDATION AT THIS TIME. VSS. WILL CONTINUE TO MONITOR.
--- NOTE | 2019-11-20 09:30 | NUR ---
PT RESTING QUIETLY. SUCTIONED. VSS. WILL CONTINUE TO MONITOR.
--- NOTE | 2019-11-20 11:16 | NUR ---
PT EXTUBATED. COUGHING AND SUCTIONING. ON O2 AT 3L. O2 SAT 96%. WILL CONTINUE TO MONITOR.
--- NOTE | 2019-11-20 13:45 | NUR ---
PT RESTING QUIETLY. VSS. WILL CONTINUE TO MONITOR.
--- NOTE | 2019-11-20 15:30 | NUR ---
REQUESTS BATH. WILL GIVE. VSS. REMAINS ON O2 AT 3L. WILL CONTINUE TO MONITOR.
--- NOTE | 2019-11-20 16:30 | NUR ---
PT GIVEN CHG BATH. NO ISSUES WITH SKIN INTEGRITY. SMALL BOWEL SMEAR.
--- NOTE | 2019-11-20 18:23 | NUR ---
DOXYCYCLINE RAMESH. PT REQUESTS PAPER TOWEL FOR SECRETIONS. NO OTHER COMPLAINTS OR NEEDS AT THIS TIME. WILL CONTINUE TO MONITOR.
--- NOTE | 2019-11-20 19:00 | NUR ---
SHIFT ASSESSMENT COMPLETED. PT CARE ASSUMED. MONITORS ON AND WORKING, VITALS STABLE, PT AWAKE AND ALERT, CALL LIGHT WITHIN REACH, SEE FLOW SHEET FOR FURTHER DETAILS. WILL CONTINUE TO OBSERVE.
--- NOTE | 2019-11-20 21:00 | NUR ---
PT ON BEDPAN AND CLEANED OF SMALL BM, PT REPOSITIONED IN BED, MONITORS ON AND WORKING, VITALS STABLE. CALL LIGHT WITHIN REACH, WILL CONTINUE TO OBSERVE.
[2019-11-21] VITALS (21 sets, daily range): BP systolic 96–142; BP diastolic 64–92
--- NOTE | 2019-11-21 01:00 | NUR ---
PT TURNED AND REPOSTIONED, COMPLETE LINEN CHANGE DONE AT THIS TIME, MONITORS ON AND WORKING, VITALS STABLE, CALL LIGHT WITHIN REACH, WILL CONTINUE TO OBSERVE.
--- NOTE | 2019-11-21 03:00 | NUR ---
PT TURNED AND REPOSITIONED FOR COMFORT, MONITORS ON AND WORKING, VITALS STABLE, CALL LIGHT WITHIN REACH, NO CHANGES AT THIS TIME, SEE FLOW SHEET FOR FURTHER DETAILS. WILL CONTINUE TO OBSERVE.
[2019-11-21 04:13] LABS: BASOPHILS 0.1 % (0-2); EOSINOPHILS 0.1 % (0-7); HEMATOCRIT 50.8 % (36.0-48.0); HEMOGLOBIN 16.7 g/dL (12-16); IMMATURE GRANULOCYTES 0.4 % (0-5); LYMPHOCYTES 11.7 % (15-50); MCH 28.9 pg (26.0-34.0); MCHC 32.9 g/dL (31.0-37.0); MEAN PLATELET VOLUME 11.8 fL (7.4-10.4); MONOCYTES 8.7 % (2-11); PLATELET COUNT 220 10x3/uL (130-400); RBC 5.77 10x6/uL (4.00-5.40); RDW 13.5 % (11.5-14.5); WBC 13.4 10x3/uL (4.8-10.8)
[2019-11-21 04:26] LABS: ALBUMIN 2.4 g/dL (3.4-5.0); BILIRUBIN - TOTAL 1.45 mg/dL (0.2-1.3); CALCIUM 8.9 mg/dL (8.5-10.1); CARBON DIOXIDE 32.9 mmol/L (21.0-32.0); CREATININE - SERUM 0.9 mg/dL (0.6-1.3)
[2019-11-21 04:35] LABS: ANION GAP 10.7 mmol/L (8-16); POTASSIUM - SERUM 3.6 mmol/L (3.5-5.1)
[2019-11-21 04:47] LABS: PROTEIN - SERUM 6.6 g/dL (6.4-8.2)
--- NOTE | 2019-11-21 05:00 | NUR ---
PY LYING IN BED RESTING, MONITORS ON AND WORKING, VITALS STABLE. CALL LIGHT WITHIN REACH, WILL CONTINUE TO OBSERVE.
--- NOTE | 2019-11-21 08:40 | NUR ---
Nutrition follow-up: Pt extubated 11/20 Sleeping at this time. NPO Wt: 199# RDN will monitor patients diet advancement and tolerance. Following.
[2019-11-21] MEDS ORDERED: ZYLOPRIM100 MG PO (11:28)
[2019-11-21] MEDS ORDERED: ASPIRIN EC325 M1 PO (11:30)
[2019-11-21] MEDS ORDERED: ANASTROZOLE PO (11:30)
[2019-11-21] MEDS ORDERED: LIPITOR40 MG PO (11:30)
[2019-11-21] MEDS ORDERED: CALCIUM 600 +1 EAC3 PO (11:31)
[2019-11-21] MEDS ORDERED: DEPAKOTE ER500 MG PO ×2 (11:31→11:32)
[2019-11-21] MEDS ORDERED: DILTIAZEM 24HR240 M4 PO (11:32)
[2019-11-21] MEDS ORDERED: AUVI-Q0.3 MG/0.3 IM (11:33)
[2019-11-21] MEDS ORDERED: LASIX40 MG PO (11:35)
[2019-11-21] MEDS ORDERED: JANUVIA100 MG PO (11:35)
[2019-11-21] MEDS ORDERED: LUMIGAN 0.01%2.5 ML EACH EYE (11:36)
[2019-11-21] MEDS ORDERED: MELATONIN 3 MG1 TAB PO (11:36)
[2019-11-21] MEDS ORDERED: LEVEMIR IN100 UNITS/ SC (11:36)
[2019-11-21] MEDS ORDERED: METOPROLOL TART50 MG PO (11:37)
[2019-11-21] MEDS ORDERED: MOBIC7.5 MG PO (11:37)
[2019-11-21] MEDS ORDERED: ZYPREXA10 MG PO (11:38)
[2019-11-21] MEDS ORDERED: MYLANTA / MAALO30 ML PO (11:38)
[2019-11-21] MEDS ORDERED: OXYBUTYNIN CHLOR5 M1 PO (11:38)
[2019-11-21] MEDS ORDERED: ULTRAM50 MG PO (11:39)
[2019-11-21] MEDS ORDERED: ZYRTEC10 MG PO (11:40)
[2019-11-21] MEDS ORDERED: ACETAMINOPHEN325 MG PO (11:40)
[2019-11-21] MEDS ORDERED: ZOFRAN4 MG PO (11:40)
--- NOTE | 2019-11-21 12:58 | NUR ---
ANTIBIOTIC HUNG. BLOOD SUGAR CHECKED. PT REPOSITIONED FOR COMFORT. SAID "THANK YOU"
--- NOTE | 2019-11-21 21:55 | NUR ---
REPORT RECEIVED, PT RESTING WITH EYES CLOSED, NO S/S OF DISTRESS NOTED, RR EVEN AND UNLABORED ON 3L O2 VIA NC. F/C PATENT, HANGING ON LEFT SIDE OF BED, DRAINING DARK YELLOW URINE, EMPTIED 450CC. PATIENT DENIES NEEDS AT THIS TIME. CL IN REACH. WILL CTM.
--- NOTE | 2019-11-21 23:57 | NUR ---
REPOSITIONED PATIENT AND PLACED ON BEDPAN. ABX HUNG, ROBITUSSIN ADMINISTERED PER ORDERS.
--- NOTE | 2019-11-22 00:50 | NUR ---
PATIENT HAD SMALL SOFT BM ON BEDPAN. POSITIONED PATIENT ON RT SIDE. CL IN REACH.
--- NOTE | 2019-11-22 02:59 | NUR ---
PATIENT C/O BEING HUNGRY. FED PATIENT APPLESAUCE WITH SIPS OF NECTAR THICK WATER. PATIENT SAYS SHE FEELS BETTER. LEFT PATIENT HOB ELEVATED. WILL CONTINUE TO MONITOR.
[2019-11-22 03:00] VITALS: BP 108/70
--- NOTE | 2019-11-22 03:17 | NUR ---
REPOSITIONED PATIENT, NEW PADS IN PLACE. MORE SIPS OF NECTAR THICK WATER OFFERED.
[2019-11-22 04:06] LABS: BASOPHILS 0 % (0-2); EOSINOPHILS 0.2 % (0-7); HEMATOCRIT 51.8 % (36.0-48.0); HEMOGLOBIN 16.3 g/dL (12-16); IMMATURE GRANULOCYTES 0.4 % (0-5); LYMPHOCYTES 16.3 % (15-50); MCH 28.7 pg (26.0-34.0); MCHC 31.5 g/dL (31.0-37.0); MEAN PLATELET VOLUME 10.9 fL (7.4-10.4); MONOCYTES 8.9 % (2-11); NEUTROPHILS 74.2 % (40-80); PLATELET COUNT 240 10x3/uL (130-400); RBC 5.67 10x6/uL (4.00-5.40); RDW 13.5 % (11.5-14.5); WBC 12.3 10x3/uL (4.8-10.8)
[2019-11-22 04:11] LABS: MCV 91.4 fL (80.0-100.0)
[2019-11-22 04:23] LABS: ALBUMIN 2.4 g/dL (3.4-5.0); ANION GAP 8.9 mmol/L (8-16); BILIRUBIN - TOTAL 1.12 mg/dL (0.2-1.3); CALCIUM 9.2 mg/dL (8.5-10.1); CARBON DIOXIDE 39.6 mmol/L (21.0-32.0); POTASSIUM - SERUM 3.5 mmol/L (3.5-5.1); PROTEIN - SERUM 6.5 g/dL (6.4-8.2)
--- NOTE | 2019-11-22 05:18 | NUR ---
ADMINISTERED PO MEDS AND ANTIBIOTIC HUNG. REPOSITIONED PATIENT. OFFERED OFFERED NECTAR THICK LIQUIDS. PATIENT DENIES FURTHER NEEDS. VSS. CL IN REACH.
[2019-11-22 06:00] VITALS: BP 95/64
--- NOTE | 2019-11-22 06:44 | NUR ---
PATIENT IS RESTING WITH EYES CLOSED, NO S/S OF DISTRESS. VSS.
--- NOTE | 2019-11-22 06:44 | NUR ---
I have reviewed this patient and I concur with the Shift Assessment completed by the Licensed Practical Nurse today this shift.
--- NOTE | 2019-11-22 09:55 | NUR ---
RECEIVED PT FROM ICU. PT IS AAO AND BEDFAST. PIV IS SALINE LOCKED. RR EVEN AND UNLABORED ON 4L 02. VSS AND WNL. WILL CTM.
[2019-11-22 10:13] VITALS: BP 132/74
--- NOTE | 2019-11-22 13:28 | NUR ---
TRANSFER FROM ICU THIS AM. OREINTED TO ROOM. CALL LIGHT IN REACH. WILL CONT. PLAN OF CARE.
[2019-11-22 14:25] VITALS: BP 118/60
[2019-11-22 17:08] VITALS: BP 154/95
--- NOTE | 2019-11-22 21:00 | NUR ---
PT KEEPS TAKING OFF THE TOP PART OF THE STATLOCK KEEPING HER DOWNING IN PLACE. EXPLAINED THAT THIS NEEDS TO STAY ON SO HER DOWNING CATHETER DOES NOT GET PULLED. SHE DID NOT VERBALIZE UNDERSTANDING. SHE WANTS TO GET ON THE BED [place]. ASSISTED ON BED [place]. SHE HAD A LARGE FORMED BOWEL MOVEMENT. SHE TOOK HER O2 OFF. O2 SAT 88%. PLACED HER BACK ON 3.5L NC AND HER SAT CAME UP TO 98%. SHE STATES I HAVE TO WAKE HER UP EARLY SO SHE CAN GET OUT OF HERE. ASKED HER WHERE SHE IS GOING AND SHE STARTS TALKING ABOUT TAKING A BATH. SHE IS ALERT TO PERSON AND PLACE. SHE KNOWS ITS OCTOBER AND SHE KNOWS SHE IS IN THE HOSPITAL BUT SHE DOES HAVE SOME CONFUSION AND HER ANSWERS TO MY QUESTIONS ARE DELAYED. I SHOWED HER HOW TO USE THE CALL LIGHT. SHE VERBALIZED UNDERSTANDING. HER BED IS LOW AND CALL LIGHT IS WITHIN REACH.
[2019-11-23 00:09] VITALS: BP 128/73
[2019-11-23 04:50] VITALS: BP 125/97
[2019-11-23 05:29] LABS: BASOPHILS 0.1 % (0-2); EOSINOPHILS 0.6 % (0-7); HEMATOCRIT 50.6 % (36.0-48.0); IMMATURE GRANULOCYTES 0.3 % (0-5); MCH 28.6 pg (26.0-34.0); MCHC 31.6 g/dL (31.0-37.0); MCV 90.4 fL (80.0-100.0); MEAN PLATELET VOLUME 11.1 fL (7.4-10.4); MONOCYTES 9.9 % (2-11); NEUTROPHILS 68.1 % (40-80); PLATELET COUNT 230 10x3/uL (130-400); RDW 13.6 % (11.5-14.5); WBC 11.6 10x3/uL (4.8-10.8)
[2019-11-23 05:54] LABS: ALBUMIN 2.3 g/dL (3.4-5.0); ANION GAP 11.8 mmol/L (8-16); BILIRUBIN - TOTAL 0.97 mg/dL (0.2-1.3); CALCIUM 9.1 mg/dL (8.5-10.1); CREATININE - SERUM 0.9 mg/dL (0.6-1.3); POTASSIUM - SERUM 3.4 mmol/L (3.5-5.1); PROTEIN - SERUM 6.4 g/dL (6.4-8.2)
[2019-11-23 05:56] LABS: CARBON DIOXIDE 29.6 mmol/L (21.0-32.0)
[2019-11-23 09:05] VITALS: BP 138/90
--- NOTE | 2019-11-23 12:19 | NUR ---
PATIENT PULLED OUT HER DOWNING CATHETER. SHE PULLED OUT HER IV ALSO. SHE IS UNDRESSED AND HAS HER LINEN ON THE FLOOR, AND O2 OFF WELL WHEN IENTERED THE ROOM TO LOOK IN ON HER. SHE DOES NOT COMPLAIN OF ANY DISCOMFORT, AND DENIES ANY NEEDS. I WILL CALL AND REPORT TO THE DR WHAT SHE HAS DONE. THE DOWNING IS BEING THROWN AWAY. THE BALLOON WAS STILL INFALTED. THE CATHETER IS INTACT IN THE IV THAT I FIND ON THE FLOOR. THE PATIENTS ARM IS NOT BLEEDING. I PLACED HER O2 BACK IN PLACE. WILL CONTINUE TO MONITOR CLOSELY.
--- NOTE | 2019-11-23 15:41 | NUR ---
ATTEMPTED IV 3 STICKS AND UNSUCCESSFUL. HAVE REPORTED TO THE DR THE PATIENT STATUS AND THE FACT THAT SHE PULLED HER IV AND FILEY. SALLY OWENS SAID LEAVE THE DOWNING OUT FOR NOW AND SEE IF SHE IS URINATING WELL. SHE SAID TO PLACE A IV , BUT THAT I COULD CHANGE THE MEDICATIONS TO ORAL, NAMLY THE BUMEX. POTASSIUM GIVEN ORDERED FOR LOW POTASSIUM. THE DRINK THIS MORNING THE PATIENT DID NOT CONSUME. SHE DID SWALLOW THE POTASSIUM PILLS THOUGH, CRUSHED IN APPLESAUCE. GAVE INSTANT GLUCOSE BECASUE HER BLOOD SUGAR WAS 68. JUST RECHECKED AND IT IS NOW 186
[2019-11-23 16:00] VITALS: BP 108/67
--- NOTE | 2019-11-23 16:37 | NUR ---
ASKED CHARGE NURSE SARA TO ATTEMPT IV ON PATIENT. WILL MONITOR FOR BLADDER DISTENTION. IF PATIENT IS NOT URINATING, WILL PLACE DOWNING AFTER BLADDER SCAN.
--- NOTE | 2019-11-23 17:19 | NUR ---
SARA, CHARGE NURSE CAN NOT GET AN IV EITHER. ALL MEDICATIONS ARE CHANGED OVER TO ORAL. CALLED ER TO SEE IF THEY WILL ATTEMPT TO FIND A IV.
[2019-11-23 18:28] VITALS: BP 116/73
--- NOTE | 2019-11-23 19:31 | NUR ---
RECEIVED UP IN BED WITH EYES CLOSED. EASILY AROUSES TO VERBAL STIMULI. REMAINS BEDFAST. NO IV AT THIS TIME. RIGHT GREAT TOE AMPUTATED AND QUARTER SIZE BLISTER TO RIGHT FA. DENIES ANY NEEDS AT THIS TIME.
--- NOTE | 2019-11-23 19:31 | NUR ---
PATIENT DID VOID. SHE IS INCONTINENT IN THE BED AND WE CLEANED HER UP.
[2019-11-23 20:00] VITALS: BP 123/81
[2019-11-24 00:05] VITALS: BP 123/80
[2019-11-24 04:36] VITALS: BP 125/90
[2019-11-24 06:47] LABS: BASOPHILS 0.1 % (0-2); EOSINOPHILS 1.1 % (0-7); HEMATOCRIT 51.3 % (36.0-48.0); HEMOGLOBIN 16.5 g/dL (12-16); IMMATURE GRANULOCYTES 0.4 % (0-5); LYMPHOCYTES 23.8 % (15-50); MCH 28.8 pg (26.0-34.0); MCHC 32.2 g/dL (31.0-37.0); MCV 89.7 fL (80.0-100.0); MONOCYTES 9.2 % (2-11); NEUTROPHILS 65.4 % (40-80); RBC 5.72 10x6/uL (4.00-5.40); RDW 13.4 % (11.5-14.5)
[2019-11-24 06:48] LABS: PLATELET COUNT 110 10x3/uL (130-400); WBC 8.5 10x3/uL (4.8-10.8)
[2019-11-24 06:52] LABS: ALBUMIN 2.4 g/dL (3.4-5.0); ALKALINE PHOSPHATASE 67 U/L (46-116); ALT (SGPT) 40 U/L (10-68); BILIRUBIN - TOTAL 1.13 mg/dL (0.2-1.3); CALC OSMOLALITY 287 mosm/kg (275-300); CALCIUM 9.1 mg/dL (8.5-10.1); CARBON DIOXIDE 31.4 mmol/L (21.0-32.0); CHLORIDE - SERUM 102 mmol/L (98-107); CREATININE - SERUM 0.7 mg/dL (0.6-1.3); GLUCOSE 177 mg/dL (74-106); POTASSIUM - SERUM 4.2 mmol/L (3.5-5.1); PROTEIN - SERUM 6.4 g/dL (6.4-8.2); SODIUM 141 mmol/L (136-145); UREA NITROGEN 20 mg/dL (7-18); eGFR NON AFRICAN AMERICAN 90 mL/min (90-120)
[2019-11-24 07:37] VITALS: BP 131/93
--- NOTE | 2019-11-24 08:00 | NUR ---
PT AWAKE AND ORIENTED, ASSISTED WITH BREAKFAST SET UP. NO COMPLAINTS/CONCERNS OR QUESTIONS THIS MONRING, NO FAMILY AT BEDSIDE. CL IN REACH, SRX2.
[2019-11-24 11:28] VITALS: BP 123/83
--- NOTE | 2019-11-24 13:17 | NUR ---
I have reviewed this patient and I concur with the Shift Assessment completed by the Licensed Practical Nurse today this shift.
[2019-11-24 16:06] VITALS: BP 120/69
--- NOTE | 2019-11-24 18:34 | NUR ---
PT AWAKE AND OREINTED, HAS HAD NO CONFUSION TODAY. WALKS WELL, X1 ASSIST, NO DIFFICULTY OTHER THAN BALANCE. HAD LARGE B.M, PT FLUSED BEFORE I COULD SEE COLOR AND TEXTURE. NOW BACK IN BED RESTING. NO COMPLAINTS/CONCERNS, ALL QUESTIONS ANSWERED. CL IN REACH, SRX2.
--- NOTE | 2019-11-24 20:30 | NUR ---
PT IS RESTING IN BED WITH EYES OPEN. ALERT AND ORIENTED X 3. SPEECH IS GARBLED. INTACT BLISTER NOTED TO LEFT FOREARM. VSS. PT INC. OF A BOWEL AND BLADDER AT THIS TIME. BED BATH GIVEN BY INSOLE TACKER. SR'S ARE UP X 3 IN BED. CALL LIGHT AND BEDSIDE TABLE ARE WITHIN EASY REACH. BED ALARM IS ON.
[2019-11-24 20:45] VITALS: BP 120/59
--- NOTE | 2019-11-24 21:27 | NUR ---
PT IS RESTING IN BED WITH EYES OPEN. NO NEEDS VOICED. PT IS VERY TALKATIVE. DROPLETT PRECAUTIONS OBSERVED.
--- NOTE | 2019-11-24 23:55 | NUR ---
PT IS RESTING QUIETLY IN BED WITH EYES CLOSED. RESPS ARE EVEN AND UNLABORED. NO ACUTE DISTRESS NOTED.
[2019-11-25 00:15] VITALS: BP 105/59
--- NOTE | 2019-11-25 03:29 | NUR ---
PT IS RESTING QUIETLY IN BED WITH EYES CLOSED. RESPS ARE EVEN AND UNLABORED. NO ACUTE DISTRESS NOTED.
[2019-11-25 04:18] VITALS: BP 110/62
[2019-11-25 08:39] VITALS: BP 135/91
--- NOTE | 2019-11-25 10:02 | NUR ---
PT RESTING PEACEFULLY WHEN I ENTERED ROOM, WOKE EASILY FOR MEDICATIONS AND TOOK WITHOUT DIFFICULTY. NO COMPLAINTS/CONCERNS AT THIS TIME. NO FAMILY AT BEDSIDE. CL IN REACH, SRX2.
[2019-11-25] MEDS ORDERED: IPRAT-ALBUT 0.5-3 ML UPD (10:38)
[2019-11-25] MEDS ORDERED: LOPRESSOR25 MG PO (10:39)
[2019-11-25 12:09] VITALS: BP 122/83
--- NOTE | 2019-11-25 13:00 | MORECARE ---
CASE MANAGEMENT DISCHARGE SUMMARY PATIENT: HEMALATHA PARK UNIT: [id number] ADM DATE: 11/14/19 AGE: 59 : 58 SEX: F ROOM/BED: D.4821 AUTHOR: MANJEET,DOC PHYSICIAN: REFERRING PHYSICIAN: JOSÉ MIGUEL CLEMENTE MD DATE OF SERVICE: 11/25/19 Discharge Plan Patient Name: HEMALATHA PARK Facility: [facility]:[place] : 1960 Planned Disposition: Nursing Facility [facility] Cert Anticipated Discharge Date: 11/25/19 Discharge Date: Expected LOS: 11 Initial Reviewer: [email or web address] Initial Review Date: 11/14/2019 Generated: 11/25/19 2:00 pm DCP- Discharge Planning Updated by [email or web address]: Minerva Linares on 11/14/19 3:[address] Patient Name: HEMALATHA PARK Admission Status: ER Accout number: [id number] Admission Date: 11-14-2019 : 1960 Admission Diagnosis: Attending: JOSÉ MIGUEL CLEMENTE Current LOS: 1 Anticipated DC Date: Planned Disposition: Nursing Facility [facility] Cert Primary Insurance: MEDICARE A & B Discharge Planning Comments: CM spoke with [facility]. [phone]. Patient has been at this facility since 10/31/19. She had transferred from a pen[facility] in [place]. Patient is in a Medicaid bed in the facility. [facility] plans to accept patient back once she is discharged. CM couldn't speak with patient d/t her being on vent sedated. No family available at this time. CM will continue to follow and assist as needed with discharge planning / needs. Deck Mechanic: Minerva Linares DCPIA - Discharge Planning Initial Assessment Updated by [email or web address]: Minerva Linares on 11/14/19 3:54 pm * Is the patient Alert and Oriented? Yes * How many steps to enter\exit or inside your home? * PCP FARIHA MENDEZ [phone] * [facility]acy [facility] * Preadmission Environment [facility] * Facility Name [facility] * List name and contact numbers for known caregivers / representatives who currently or will assist patient after discharge: KORY SANCHEZ- [phone] * Verbal permission to speak to the caregivers and representatives has been obtained from the patient. N/A * Community resources currently utilized None * Additional services required to return to the preadmission environment? No * Can the patient safely return to the preadmission environment? Yes * Has this patient been hospitalized within the prior 30 days at any hospital? No Last DP export: 11/14/19 3:11 Patient Name: HEMALATHA PARK Page 13586 at 1300 All edits/amendments must be made on the electronic document DICTATION DATE: 11/25/19 1300 FILM MOUNTER: DILEEP 11/25/19 1300 RPT#: [id number] DC DATE: STATUS: ADM IN [facility] [address] [place] [address] END OF REPORT
--- NOTE | 2019-11-25 13:16 | MORECARE ---
CASE MANAGEMENT DISCHARGE SUMMARY PATIENT: HEMALATHA PARK UNIT: [id number] ADM DATE: 11/14/19 AGE: 59 : 58 SEX: F ROOM/BED: D.9471 AUTHOR: MANJEET,DOC PHYSICIAN: REFERRING PHYSICIAN: JOSÉ MIGUEL CLEMENTE MD DATE OF SERVICE: 11/25/19 Discharge Plan Patient Name: HEMALATHA PARK Facility: [facility]:[place] : 1960 Planned Disposition: Nursing Facility [facility] Cert Anticipated Discharge Date: 11/25/19 Discharge Date: Expected LOS: 11 Initial Reviewer: [email or web address] Initial Review Date: 11/14/2019 Generated: 11/25/19 2:15 pm DCP- Discharge Planning Updated by [email or web address]: Minerva Linares on 11/14/19 3:[address] Patient Name: HEMALATHA PARK Admission Status: ER Accout number: [id number] Admission Date: 11-14-2019 : 1960 Admission Diagnosis: Attending: JOSÉ MIGUEL CLEMENTE Current LOS: 1 Anticipated DC Date: Planned Disposition: Nursing Facility [facility] Cert Primary Insurance: MEDICARE A & B Discharge Planning Comments: CM spoke with [facility]. [phone]. Patient has been at this facility since 10/31/19. She had transferred from a shelter in [place]. Patient is in a Medicaid bed in the facility. [facility] plans to accept patient back once she is discharged. CM couldn't speak with patient d/t her being on vent sedated. No family available at this time. CM will continue to follow and assist as needed with discharge planning / needs. Gunite Nozzle Operator: Minerva Linares DCPIA - Discharge Planning Initial Assessment Updated by [email or web address]: Minerva Linares on 11/14/19 3:54 pm * Is the patient Alert and Oriented? Yes * How many steps to enter\exit or inside your home? * PCP FARIHA MENDEZ [phone] * [facility] * Preadmission Environment Assisted Long Term * Facility Name [facility] * List name and contact numbers for known caregivers / representatives who currently or will assist patient after discharge: KORY SANCHEZ- [phone] * Verbal permission to speak to the caregivers and representatives has been obtained from the patient. N/A * Community resources currently utilized None * Additional services required to return to the preadmission environment? No * Can the patient safely return to the preadmission environment? Yes * Has this patient been hospitalized within the prior 30 days at any hospital? No External Providers External Provider: [facility] Next Contact Date: 11/25/2019 Service Request Date: Service Type: Resolution: Reviewer: Comments: Last DP export: 11/25/19 12:00 Patient Name: HEMALATHA PARK Page 48978 at 1316 All edits/amendments must be made on the electronic document DICTATION DATE: 11/25/191314 MILLED LUMBER GRADER: DILEEP 11/25/19 1315 RPT#: [id number] DC DATE: STATUS: ADM IN [facility] [address] [place] [address] END OF REPORT
--- NOTE | 2019-11-25 13:25 | MORECARE ---
CASE MANAGEMENT DISCHARGE SUMMARY PATIENT: HEMALATHA PARK UNIT: [id number] ADM DATE: 11/14/19 AGE: 59 : 58 SEX: F ROOM/BED: D.0749 AUTHOR: MANJEET,DOC PHYSICIAN: REFERRING PHYSICIAN: JOSÉ MIGUEL CLEMENTE MD DATE OF SERVICE: 11/25/19 Discharge Plan Patient Name: HEMALATHA PARK Facility: [facility]:[place] : 1960 Planned Disposition: Nursing Facility [facility] Cert Anticipated Discharge Date: 11/25/19 Discharge Date: Expected LOS: 11 Initial Reviewer: [email or web address] Initial Review Date: 11/14/2019 Generated: 11/25/19 2:24 pm Comments DCP- Discharge Planning Updated by [email or web address]: Rajan Orantes on 11/25/19 12:[address] Patient Name: HEMALATHA PARK Encounter No: [id number] : 1960 Primary Insurance: MEDICARE A & B Anticipated DC Date: 11-25-2019 Planned Disposition: Nursing Facility [facility] Cert External Planned Provider: [facility] TERM CARE MEDICAID BED DCP follow-up note: CM RECEIVED DISCHARGE ORDER, MET WITH PT IN ROOM TO DISCUSS DISCHARGE NEEDS AND PLANNING. PT REPORTS SHE LIVES AT THE [facility] IN [place] AND IS READY TO GO HOME TODAY. CHOICE SIGNED. IMPORTANT MESSAGE FROM MEDICARE PROVIDED AND EXPLAINED. CM SPOKE TO BEDSIDE NURSE WHO HAS CALLED REPORT TO [facility] AND THEY ARE PICKING UP AT 1500 HOURS; THE INTERMEDIATE HAS BEEN ADVISED PT IS ON ISOLATION. OC RECEIVED FAX FROM [facility] OF ADMISSIONS REQUESTING TREATMENT AND DISCHARGE INFORMATION. OC FAXED REQUESTED INFORMATION TO [facility] AT [phone]. HAT PARTS CUTTER MACHINE NURSE NOTIFIED. CM CALLED [facility], , ADVISED OF RECORDS BEING FAXED AND THAT PT IS ON DROPLET ISOLATION. [facility] TO [facility] ADMINISTRATOR PT AROUND 1500 HOURS TODAY. Rajan Orantes CASE DANIEL DCP- Discharge Planning Updated by [email or web address]: Minerva Linares on 11/14/19 3:[address] Patient Name: HEMALATHA PARK Admission Status: ER Accout number: [id number] Admission Date: 11-14-2019 : 1960 Admission Diagnosis: Attending: JOSÉ MIGUEL CLEMENTE Current LOS: 1 Anticipated DC Date: Planned Disposition: Nursing Facility [facility] Primary Insurance: MEDICARE A & B Discharge Planning Comments: CM spoke with [facility]. [phone]. Patient has been at this facility since 10/31/19. She had transferred from a prison in [place]. Patient is in a Medicaid bed in the facility. [facility] plans to accept patient back once she is discharged. CM couldn't speak with patient d/t her being on vent sedated. No family available at this time. CM will continue to follow and assist as needed with discharge planning / needs. Dowel Pin Worker: Minerva MANJARREZ - Discharge Planning Initial Assessment Updated by [email or web address]: Minerva Linares on 11/14/19 3:54 pm * Is the patient Alert and Oriented? Yes * How many steps to enter\exit or inside your home? * PCP FARIHA MENDEZ [phone] * [facility] * Preadmission Environment [facility] * Facility Name [facility] * List name and contact numbers for known caregivers / representatives who currently or will assist patient after discharge: [facility]- [phone] * Verbal permission to speak to the caregivers and representatives has been obtained from the patient. N/A * Community resources currently utilized None * Additional services required to return to the preadmission environment? No * Can the patient safely return to the preadmission environment? Yes * Has this patient been hospitalized within the prior 30 days at any hospital? No Last DP export: 11/25/19 12:15 Patient Name: HEMALATHA PARK Page [phone] at 1325 All edits/amendments must be made on the electronic document DICTATION DATE: 11/25/191323 CODER OPERATOR: DILEEP 11/25/191323 RPT#: [id number] DC DATE: STATUS: ADM IN [facility] [address] [place] [address] END OF REPORT
--- NOTE | 2019-11-25 16:29 | NUR ---
PT ESCORTED OUT VIA HWEELCHAIR TO LONGTERM VAN. CL INR EACH, SRX2
== END 2019-11-25 16:29 | DRG 207 ==
LOC: D.ER 00:28 → D.ICU 01:04 → D.ER 01:28 → D.ICU 01:40 → D.M2 11-22 07:56
PROVIDERS: Family Medicine; ADMIT Internal Medicine Nephrology; ATTEND Internal Medicine Nephrology
PROC: 5A1955Z Respiratory Ventilation, Greater than 96 Consecutive Hours (ICD-10-PCS; principal; 2019-11-14)
DX: J96.22 Acute and chronic respiratory failure with hypercapnia (principal); J15.6 Pneumonia due to other Gram-negative bacteria; G93.41 Metabolic encephalopathy; I50.23 Acute on chronic systolic (congestive) heart failure; I21.4 Non-ST elevation (NSTEMI) myocardial infarction; J44.1 Chronic obstructive pulmonary disease with (acute) exacerbation; J96.21 Acute and chronic respiratory failure with hypoxia; I11.0 Hypertensive heart disease with heart failure; E78.5 Hyperlipidemia, unspecified; K21.9 Gastro-esophageal reflux disease without esophagitis; F41.8 Other specified anxiety disorders; Z85.3 Personal history of malignant neoplasm of breast; D75.1 Secondary polycythemia; M41.84 Other forms of scoliosis, thoracic region; G40.909 Epilepsy, unspecified, not intractable, without status epilepticus; M10.9 Gout, unspecified; F20.9 Schizophrenia, unspecified; E11.9 Type 2 diabetes mellitus without complications